=== PATIENT | female | born 1945 | race Caucasian/White ===

== ENCOUNTER 2019-04-11 13:24 | Outpatient (CLI) | payer MEDICARE, OTHER ==
--- NOTE | 2019-04-13 04:55 | OP ---
RADIOLOGY PROCEDURE DATE OF PROCEDURE: 04/11/2019 PROCEDURE: Arterial Doppler. INTERPRETATION: Bilateral lower extremity arterial Doppler examination was performed. There are triphasic waveforms bilaterally with good peak area under the curve. On the right, ankle-brachial index is 1.1; and on the left, ankle- brachial index is 1.2. IMPRESSION: Normal arterial Doppler. Job ID: [id number] MTDD
== END 2019-04-11 13:25 | disposition home or self-care (01) ==
LOC: ULT 13:24
PROVIDERS: ATTEND Family Medicine
DX: G47.62 Sleep related leg cramps (principal)
CPT/HCPCS: 93922

== ENCOUNTER 2019-11-23 08:13 | Outpatient (CLI) | payer MEDICARE, OTHER ==
--- NOTE | 2019-11-23 09:36 | MMO ---
Bilateral MAMMO Bilat Screen [facility]. CLINICAL HISTORY: Patient is 74 years old and is seen for screening. The patient has the following family history of breast cancer: sister, at age 42, malignant (generic); maternal aunt, at age 83, malignant (generic); maternal aunt, at age 42, malignant (generic) and maternal aunt, at age 51, malignant (generic). The patient has no personal history of cancer. VIEWS: The views performed were: bilateral craniocaudal with tomosynthesis and bilateral mediolateral oblique with tomosynthesis. FILMS COMPARED: The present examination has been compared to prior imaging studies performed at [facility] on 07/24/2004 and 05/14/2016. This study has been interpreted with the assistance of computer-aided detection. MAMMOGRAM FINDINGS: There are scattered fibroglandular densities. There are stable benign appearing calcifications seen in both breasts. There are no suspicious masses, suspicious calcifications, or new areas of architectural distortion. IMPRESSION: THERE IS NO MAMMOGRAPHIC EVIDENCE OF MALIGNANCY. A ROUTINE FOLLOW-UP MAMMOGRAM IN 1 YEAR IS RECOMMENDED. THE RESULTS OF THIS EXAM WERE SENT TO THE PATIENT. ACR BI-RADS Category 2 - Benign finding MAMMOGRAPHY NOTE: 1. A negative mammogram report should not delay a biopsy if a dominant of clinically suspicious mass is present. 2. Approximately 10% to 15% of breast cancers are not detected by mammography. 3. Adenosis and dense breasts may obscure an underlying neoplasm. Reported by: MARIAN NOLASCO MD Electonically Signed: [id number]
== END 2019-11-23 08:14 | disposition home or self-care (01) ==
LOC: BICMAMMO 08:13
PROVIDERS: ATTEND Family Medicine
DX: Z12.31 Encounter for screening mammogram for malignant neoplasm of breast (principal); Z80.3 Family history of malignant neoplasm of breast
CPT/HCPCS: 77063; 77067

== ENCOUNTER 2019-11-25 22:52 | Inpatient (IN) | payer MEDICARE, OTHER ==
[2019-11-25 23:06] LABS: #Basophils 0.1 thou/uL (0.0-0.2); #Eosinphils 0.2 thou/uL (0.0-0.7); #Lymphocytes 1.9 thou/uL (1.20-3.40); #Monocytes 1.1 thou/uL (0.11-0.59); #Neutrophils 5.8 thou/uL (1.40-6.50); %Basophils 0.8 % (0.0-1.0); %Eosinophils 1.9 % (0.0-10.0); %Lymphocytes 21.1 % (21.0-51.0); %Monocytes 11.9 % (0.0-10.0); %Neutrophils 64.3 % (42.0-75.0); Mean Corpuscular HGB CONC 33.2 g/dL (32.0-36.0); Mean Corpuscular Volume 90.4 fL (78.0-98.0); Mean Platelet Volume 7.7 fL (7.4-10.4); Platelet Count 180 thou/uL (130-400); Red Blood Cell (RBC) Count 4.66 mill/uL (4.20-5.40); White Blood Cell (WBC) Count 9.1 thou/uL (4.8-10.8)
--- NOTE | 2019-11-25 23:13 | RAD ---
Portable frontal chest radiograph: 11/25/2019 COMPARISON: 03/03/2010 HISTORY: Shortness of breath FINDINGS: There are increased linear interstitial densities noted bilaterally with pulmonary hyperinf lation, evidence of COPD in the proper clinical setting. No pneumothorax or pleural fluid. No focal consolidation or alveolar edema. IMPRESSION: No focal consolidation or alveolar edema.
[2019-11-25 23:33] LABS: ALT (SGPT) 20 U/L (8-55); AST (SGOT) 30 U/L (5-34); Albumin 4.3 g/dL (3.4-4.8); Alkaline Phosphatase 70 U/L (40-110); Anion Gap 14 mmol/L (10-20); BUN (Urea Nitrogen) 9 mg/dL (9.8-20.1); Bilirubin, Total 0.3 mg/dL (0.2-1.2); Calc. Creatinine Clearance 0 mL/min (70-130); Calcium 9.3 mg/dL (7.8-10.44); Carbon Dioxide 28 mmol/L (23-31); Chloride 101 mmol/L (98-107); Estimated GFR-MDRD 85; Globulin 3.4 g/dL (2.4-3.5); Glucose 106 mg/dL (83-110); Potassium 3.2 mmol/L (3.5-5.1); Protein, Total 7.7 g/dL (6.0-8.3); Sodium 140 mmol/L (136-145)
[2019-11-26] MEDS ORDERED: Albuterol Sulfate 2.5 mg/3 ml Neb ONE ×2 (00:14→00:52)
[2019-11-26] MEDS ORDERED: methylPREDNISolone Sod Succ/PF 125 MG/2 ML VIAL ONE (00:53)
[2019-11-26] MEDS ORDERED: Famotidine/PF 20 mg/2ml Vial ONE (01:30)
[2019-11-26] MEDS ORDERED: diphenhydrAMINE 50 MG/ML VIAL ONE (01:30)
[2019-11-26] MEDS ORDERED: Bisacodyl 10 MG SUPP PR PRN (01:59)
[2019-11-26] MEDS ORDERED: Guaifenesin DM 100-10/5 ML UDCUP PO PRN (01:59)
[2019-11-26] MEDS ORDERED: Senokot S 8.6-50 MG TAB PO PRN (01:59)
[2019-11-26] MEDS ORDERED: Acetaminophen 325 MG TAB PO PRN (01:59)
[2019-11-26] MEDS ORDERED: Ondansetron PF 4 MG/2 ML Vial IVP PRN (01:59)
[2019-11-26] MEDS ORDERED: Sodium Chloride 0.9% 1,000 ML IV SCH (02:00)
--- NOTE | 2019-11-26 02:31 | HP ---
REASON FOR ADMISSION: Acute COPD exacerbation, possible viral illness. HISTORY OF PRESENTING ILLNESS: The patient gives history of having cough with expectoration of clear sputum from last 3 days. From yesterday evening, the patient started to develop severe shortness of breath. She could not breathe and finally called EMS and was transported here. No fever at home. She does not take yearly flu shot because she has had symptoms of flu come on after she has had a flu shot in the past. She has taken a pneumococcal shot. No complaints of chest pain, palpitations, or PND. The patient says she does not use any regular inhalers or nebulizers. No prior diagnosis of COPD or asthma. PAST MEDICAL AND SURGICAL HISTORY: Hypertension, anxiety disorder, right forearm both-bone fracture when she was 13 years old and a wrist fracture repaired 4 years back, tubal ligation. CURRENT MEDICATIONS: 1. Norvasc 10 mg daily. 2. Hydrochlorothiazide 25 mg daily. 3. Sertraline 50 mg daily. ALLERGIES: IODINE. PERSONAL HISTORY: Quit smoking 10 years back, prior to which has smoked 1 pack a day for nearly 20 years. Does not abuse alcohol or drugs. Lives with her . Ambulates by herself. FAMILY HISTORY: Mother of pancreatic cancer at the age of 69. Father was killed by a drunk wheelchair driver at the age of 71 years. CODE STATUS: Full. Power of title attorney is her . REVIEW OF SYSTEMS: CONSTITUTIONAL: Negative for weight loss or gain, ability to conduct usual activities. SKIN: Negative for rash, itching. EYES: Negative for double vision, pain. ENT/MOUTH: Negative for nose bleeding, neck stiffness, pain, tenderness. CARDIOVASCULAR: Negative for palpitations, dyspnea on exertion, orthopnea. RESPIRATORY: Negative for shortness of breath, wheezing, cough, hemoptysis, fever or night sweats. GASTROINTESTINAL: Negative for poor appetite, abdominal pain, heartburn, nausea , vomiting, constipation, or diarrhea. GENITOURINARY: Negative for urgency, frequency, dysuria, nocturia. MUSCULOSKELETAL: Negative for pain, swelling. NEUROLOGIC/PSYCHIATRIC: Negative for anxiety, depression. ALLERGY/IMMUNOLOGIC: Negative for skin rash, bleeding tendency. PHYSICAL EXAMINATION: GENERAL: The patient is a 74-year-old female, who is currently in mild respiratory distress. VITAL SIGNS: Blood pressure 172/90, pulse 86 per minute, respiratory rate 22 per minute, temperature 98.5 degrees Fahrenheit, saturating 79% on room air and 94% on 2 L nasal cannula. NECK: Supple. No elevated JVD. HEENT: Eyes; extraocular muscles intact. Pupils reacting to light. Oral cavity, mucous membranes are dry. No exudates or congestion. CARDIOVASCULAR: S1 and S2 heard. Regular rhythm. RESPIRATORY: Air entry 1+ bilateral. Scattered wheezes plus bilateral, rhonchi plus bilateral. ABDOMEN: Soft, bowel sounds heard. No tenderness, rigidity, or guarding. EXTREMITIES: No peripheral edema or calf tenderness. VASCULAR SYSTEM: Peripheral pulses 1+ bilateral. No ischemic ulcerations or gangrene. CENTRAL NERVOUS SYSTEM: No gross focal deficits noted. The patient is alert, awake, oriented well. PSYCHIATRIC: The patient's mood is euthymic. No hallucinations or delusions. LABORATORY DATA: Chest x-ray done shows no acute infiltrate. There are changes of COPD seen. Potassium 3.2, bicarb is 28, BUN 9, creatinine 0.6. Liver enzymes within normal limits. Troponin x1 negative. BNP 14. Albumin is 4.3. H and H 14 and 42, platelet count 180, MCV is 90 with 64% neutrophils. EKG done shows normal sinus rhythm at 88 beats per minute. There is poor R-wave progression seen. CLINICAL IMPRESSION AND PLAN: The patient will be under observation on medical floor for acute chronic obstructive pulmonary disease exacerbation with acute respiratory failure with hypoxia. She is currently saturating well on 2 L nasal cannula. The patient will be placed on 40 mg Solu-Medrol IV q.6 hourly, Levaquin IV 500 mg daily, Mucinex and Tessalon Perles. We will also continue her home dose of Norvasc, sertraline. She will be on Protonix 40 mg daily for now. CT angio chest has been ordered and we will follow up on that. Viral PCR will be obtained as well. The patient does not take her flu shots. The patient likely might have viral illness that has triggered her current COPD flare up. If the patient do not recover in 24 hours, we will switch her to inpatient status based on clinical progress. Job ID: [id number] [facility]
[2019-11-26 02:42] LABS: #Eosinphils 0.1 thou/uL (0.0-0.7); #Lymphocytes 1.4 thou/uL (1.20-3.40); #Monocytes 0.3 thou/uL (0.11-0.59); %Eosinophils 0.7 % (0.0-10.0); %Lymphocytes 18.1 % (21.0-51.0); %Monocytes 4.2 % (0.0-10.0); Hemoglobin 12.3 g/dL (12.0-16.0); Mean Corpuscular HGB CONC 33.7 g/dL (32.0-36.0); Mean Corpuscular Hemoglobin 30.4 pg (27.0-31.0); Mean Corpuscular Volume 90.1 fL (78.0-98.0); Mean Platelet Volume 7.9 fL (7.4-10.4); Platelet Count 157 thou/uL (130-400); RBC Distribution Width 11.8 % (11.5-14.5); Red Blood Cell (RBC) Count 4.03 mill/uL (4.20-5.40); White Blood Cell (WBC) Count 7.8 thou/uL (4.8-10.8)
[2019-11-26 03:06] LABS: Anion Gap 13 mmol/L (10-20); BUN (Urea Nitrogen) 10 mg/dL (9.8-20.1); Calc. Creatinine Clearance 0 mL/min (70-130); Calcium 8.6 mg/dL (7.8-10.44); Carbon Dioxide 26 mmol/L (23-31); Chloride 103 mmol/L (98-107); Estimated GFR-MDRD Greater than 90; Glucose 119 mg/dL (83-110); Sodium 139 mmol/L (136-145)
[2019-11-26 03:09] LABS: Potassium 2.6 mmol/L (3.5-5.1)
[2019-11-26 03:46] VITALS: BMI 29.0
[2019-11-26] MEDS ORDERED: Potassium Chloride 20 MEQ TAB PO SCH ×2 (04:00→06:00)
[2019-11-26] MEDS: methylPREDNISolone Sod Succ 40 MG VIAL IVP SCH ×2 (05:05→12:43)
--- NOTE | 2019-11-26 07:59 | CT ---
PRELIMINARY REPORT/[facility]/EMERGENCY AFTER HOURS PROCEDURE: EXAM: CTA Chest with Intravenous Contrast CLINICAL HISTORY: FVida presents to the ED with c/o SOB x 3 days, that became worse tonight. Pt also re ports decreased appetite, productive cough and clear rhinorrhea. TECHNIQUE: Axial CTA images of the chest with intravenous contrast. MIP reconstructed images were cre ated and reviewed. CONTRAST: With; 85 mL ISOVUE 370 intravenous COMPARISON: None provided. FINDINGS: PULMONARY ARTERIES: There is no intraluminal filling defect suspicious for PE. AORTA: No thoracic aortic aneurysm or dissection. LUNGS: Bilateral diffuse centrilobular emphysematous changes in the lungs. No focal consolidation. Co arse calcification within the left upper lobe consistent with evidence of prior granulomatous or fady al disease. Trace atelectasis at the lung bases. PLEURAL SPACES: No pleural effusion. No pneumothorax. HEART AND MEDIASTINUM: Coronary atherosclerosis. The heart is normal size. No pericardial effusion. LYMPH NODES: No lymphadenopathy. BONES: Multilevel degenerative changes of the spine. No acute fractures or worrisome osseous lesions. CHEST WALL AND UPPER ABDOMEN: Simple cyst of the upper pole of the left kidney. Gallbladder phrygian cap with enhancing intraluminal mural nodule measuring 8 mm. Diverticulosis. IMPRESSION: 1. No evidence of pulmonary embolism or aortic dissection. 2. Coronary atherosclerosis. 3. Diffuse emphysematous changes. No focal consolidation. 4. Gallbladder enhancing mural nodule measuring 8 mm. This may represent a polyp or mass. Follow-u p with ultrasound is suggested. ELECTRONICALLY SIGNED BY: Bruce Florenitno M.D. Nov 26, 2019 2:40:53 AM [employer] OPERATOR FINAL REPORT EMERGENT AFTER HOURS CTA OF THE CHEST WITH CONTRAST: FINDINGS/IMPRESSION: I agree with the findings and impression given in the preliminary report per [facility] physici an. No evidence of pulmonary thromboembolism.
[2019-11-26] MEDS: guaiFENesin ER 600 MG TAB PO SCH ×2 (08:30→21:09)
[2019-11-26] MEDS: Benzonatate 100 MG CAP PO SCH ×3 (08:30→21:09)
[2019-11-26] MEDS: Potassium Chloride 20 MEQ TAB PO SCH ×3 (08:30→21:10)
[2019-11-26] MEDS: Amlodipine 10 MG TAB PO SCH (08:31)
[2019-11-26] MEDS: Enoxaparin Sodium 40 MG/0.4 ML SYRINGE SC SCH (08:34)
[2019-11-26] MEDS: Famotidine 20 MG TAB PO SCH ×2 (09:36→21:09)
[2019-11-26] MEDS ORDERED: Iopamidol-370 76% 500 ML 1 ML ONE (12:56)
--- NOTE | 2019-11-26 17:14 | PDOC.HOSPP ---
- Subjective Encounter Date: 11/26/19 Encounter Time: 17:12 Subjective: Ms. Varela says she feel much better. She does not believe she has any congestion anymore. She is still requiring supplemental oxygen however. - Objective Vital Signs & Weight: Vital Signs (12 hours) Temp Pulse Resp BP BP Pulse Ox 11/26/19 16:24 97.9 F 76 20 169/90 H 91 L 11/26/19 12:49 77 16 94 L 11/26/19 12:46 16 94 L 11/26/19 12:45 85 L 11/26/19 11:10 97.7 F 77 20 134/75 91 L 11/26/19 08:31 77 149/74 H 11/26/19 07:59 97.7 F 77 20 149/74 H 100 11/26/19 07:56 75 14 100 Weight Weight 174 lb 9.698 oz I&O: 11/25/19 11/26/19 11/27/19 06:59 06:59 06:59 Intake Total 110 Balance 110 Result Diagrams: 11/26/19 02:28 11/26/19 02:28 Hospitalist ROS - Medication Medications: Active Medications Generic Name Dose Route Start Last Admin Trade Name Freq PRN Reason Stop Dose Admin Albuterol/Ipratropium 3 ml 11/26/19 07:00 11/26/19 12:49 Duoneb NEB 3 ml [id number] PARK Administration Amlodipine Besylate 10 mg 11/26/19 09:00 11/26/19 08:31 Norvasc PO 10 mg DAILY PARK Administration Benzonatate 100 mg 11/26/19 09:00 11/26/19 15:41 Tessalon PO 100 mg TID PARK Administration Enoxaparin Sodium 40 mg 11/26/19 09:00 11/26/19 08:34 Lovenox SC Not Given 0900 PARK Famotidine 20 mg 11/26/19 09:00 11/26/19 09:36 Pepcid PO Not Given BID PARK Guaifenesin 600 mg 11/26/19 09:00 11/26/19 08:30 Mucinex PO 600 mg Q12HR PARK Administration Levofloxacin 500 mg/ Device 100 mls @ 100 mls/hr 11/26/19 03:00 11/26/19 03: 23 IVPB 100 mls Q24HR PARK Administration Sodium Chloride 1,000 mls @ 50 mls/hr 11/26/19 02:00 11/26/19 03:23 Normal Saline 0.9% IV 11/26/19 21:59 1,000 mls .Q20H PARK Administration Methylprednisolone Sodium Succinate 40 mg 11/26/19 06:00 11/26/19 12:43 Solu-Medrol IVP 40 mg Q6HR PARK Administration Pantoprazole Sodium 40 mg 11/26/19 09:00 11/26/19 08:30 Protonix PO 40 mg DAILY PARK Administration Potassium Chloride 40 meq 11/26/19 10:00 11/26/19 15:40 K-Dur PO 11/27/19 16:01 40 meq 0400,1000,1600,2200 PARK Administration Sertraline HCl 50 mg 11/26/19 09:00 11/26/19 08:31 Zoloft PO 50 mg DAILY PARK Administration Sodium Chloride 10 ml 11/26/19 09:00 11/26/19 09:36 Flush - Normal Saline IVF Not Given Q12HR PARK - Exam Eye: PERRL Heart: RRR, no murmur, no gallops, no rubs, normal peripheral pulses Respiratory: CTAB (with the exception of a faint end expiratory wheeze), no rales, no ronchi, normal chest expansion Gastrointestinal: soft, non-tender, non-distended, normal bowel sounds, no palpable masses, no hepatomegaly Extremities: no cyanosis Hosp A/P (1) Acute respiratory failure with hypoxemia Code(s): J96.01 - ACUTE RESPIRATORY FAILURE WITH HYPOXIA Status: Acute (2) Hypertension Code(s): I10 - ESSENTIAL (PRIMARY) HYPERTENSION Status: Acute (3) Hypokalemia Code(s): E87.6 - HYPOKALEMIA Status: Acute - Plan * Acute respiratory failure with hypoxemia- I suspect she has undiagnosed COPD- She had changes consistent with Emphysema on CT scan, and she is a former smoker , of about 20 pack years. Will continue Levaquin, and Duonebs, and steroids. Will reduce the dose of Solumedrol * Wean oxygen as tolerated * I recommend outpatient PFT's- discussed with patient * Also discussed the gallbladder findings, and the need for outpatient US * HTN- Blood pressure is a bit elevated- continue home medications, and PRN medication as tolerated * Hypokalemia- replace
[2019-11-26] MEDS ORDERED: Bacteriostatic Water 30 ML VIAL FS PRN (17:29)
[2019-11-27] MEDS: Potassium Chloride 20 MEQ TAB PO SCH ×3 (04:12→15:10)
[2019-11-27 06:26] LABS: Anion Gap 12 mmol/L (10-20); BUN (Urea Nitrogen) 16 mg/dL (9.8-20.1); Calc. Creatinine Clearance 96 mL/min (70-130); Calcium 9.3 mg/dL (7.8-10.44); Carbon Dioxide 25 mmol/L (23-31); Chloride 112 mmol/L (98-107); Estimated GFR-MDRD 89; Glucose 107 mg/dL (83-110); Potassium 4.6 mmol/L (3.5-5.1); Sodium 144 mmol/L (136-145)
[2019-11-27] MEDS: guaiFENesin ER 600 MG TAB PO SCH ×2 (08:47→20:32)
[2019-11-27] MEDS: Amlodipine 10 MG TAB PO SCH (08:47)
[2019-11-27] MEDS: Benzonatate 100 MG CAP PO SCH ×3 (08:47→20:32)
[2019-11-27] MEDS: Famotidine 20 MG TAB PO SCH (08:47)
[2019-11-27] MEDS: methylPREDNISolone Sod Succ 40 MG VIAL IVP SCH (08:49)
[2019-11-27] MEDS: Enoxaparin Sodium 40 MG/0.4 ML SYRINGE SC SCH (08:50)
--- NOTE | 2019-11-27 14:36 | PDOC.HOSPP ---
- Subjective Encounter Date: 11/27/19 Encounter Time: 14:35 Subjective: Ms. Varela was seen today in follow-up of acute respiratory failure. She is feeling better. - Objective Vital Signs & Weight: Vital Signs (12 hours) Temp Pulse Resp BP Pulse Ox 11/27/19 12:42 85 16 94 L 11/27/19 11:00 97.9 F 82 18 155/84 H 92 L 11/27/19 08:47 87 11/27/19 07:30 97.9 F 87 18 145/79 H 92 L 11/27/19 07:02 95 11/27/19 07:00 75 16 95 11/27/19 05:17 97.4 F L 83 18 164/79 H 93 L Weight Weight 174 lb 9.698 oz I&O: 11/26/19 11/27/19 11/28/19 06:59 06:59 06:59 Intake Total 110 200 700 Balance 110 200 700 Result Diagrams: 11/26/19 02:28 11/27/19 05:37 Hospitalist ROS - Medication Medications: Active Medications Generic Name Dose Route Start Last Admin Trade Name Freq PRN Reason Stop Dose Admin Albuterol/Ipratropium 3 ml 11/26/19 07:00 11/27/19 12:42 Duoneb NEB 3 ml [id number] PARK Administration Amlodipine Besylate 10 mg 11/26/19 09:00 11/27/19 08:47 Norvasc PO 10 mg DAILY PARK Administration Benzonatate 100 mg 11/26/19 09:00 11/27/19 08:47 Tessalon PO 100 mg TID PARK Administration Enoxaparin Sodium 40 mg 11/26/19 09:00 11/27/19 08:50 Lovenox SC Not Given 0900 PARK Guaifenesin 600 mg 11/26/19 09:00 11/27/19 08:47 Mucinex PO 600 mg Q12HR PARK Administration Methylprednisolone Sodium Succinate 40 mg 11/27/19 09:00 11/27/19 08:49 Solu-Medrol IVP 40 mg DAILY PARK Administration Pantoprazole Sodium 40 mg 11/26/19 09:00 11/27/19 08:47 Protonix PO 40 mg DAILY PARK Administration Potassium Chloride 40 meq 11/26/19 10:00 11/27/19 09:23 K-Dur PO 11/27/19 16:01 40 meq 0400,1000,1600,2200 PARK Administration Sertraline HCl 50 mg 11/26/19 09:00 11/27/19 08:48 Zoloft PO 50 mg DAILY PARK Administration Sodium Chloride 10 ml 11/26/19 09:00 11/27/19 08:49 Flush - Normal Saline IVF 10 ml Q12HR PARK Administration - Exam Eye: PERRL Respiratory: CTAB, no wheezes, no rales, no ronchi, normal chest expansion, no tachypnea, normal percussion Gastrointestinal: soft, non-tender, non-distended, normal bowel sounds, no palpable masses, no hepatomegaly Extremities: no cyanosis, no edema Hosp A/P (1) Acute respiratory failure with hypoxemia Code(s): J96.01 - ACUTE RESPIRATORY FAILURE WITH HYPOXIA Status: Acute (2) Hypertension Code(s): I10 - ESSENTIAL (PRIMARY) HYPERTENSION Status: Acute (3) Hypokalemia Code(s): E87.6 - HYPOKALEMIA Status: Acute - Plan * Acute respiratory failure with hypoxemia- due to Probable Emphysema- improving , butjacob is still hypoxic. She feels like her baseline * Will order home oxygen * HTN- Blood pressure is a bit elevated- continue home medications, and PRN medication as tolerated * Home once oxtgen arranged
[2019-11-27] MEDS ORDERED: Rosuvastatin 20 MG TAB PO SCH (21:00)
[2019-11-28] MEDS: Benzonatate 100 MG CAP PO SCH ×2 (07:52→14:49)
[2019-11-28] MEDS: guaiFENesin ER 600 MG TAB PO SCH (07:52)
[2019-11-28] MEDS: methylPREDNISolone Sod Succ 40 MG VIAL IVP SCH (07:53)
[2019-11-28] MEDS: Amlodipine 10 MG TAB PO SCH (07:53)
[2019-11-28] MEDS: Enoxaparin Sodium 40 MG/0.4 ML SYRINGE SC SCH (07:53)
--- NOTE | 2019-11-28 16:01 | PDOC.HOSPP ---
- Subjective Encounter Date: 11/28/19 Encounter Time: 16:00 Subjective: Ms. Varela was seen today in follow-up of respiratory failure. She says she has to go home today. She tells me she has been ambulating without the oxygen. - Objective Vital Signs & Weight: Vital Signs (12 hours) Temp Pulse Resp BP BP Pulse Ox 11/28/19 13:09 80 16 11/28/19 11:47 97.7 F 91 22 H 170/82 H 91 L 11/28/19 08:00 93 L 11/28/19 07:53 86 138/78 11/28/19 07:19 97.8 F 88 20 138/78 93 L 11/28/19 06:55 76 16 94 L Weight Weight 174 lb 9.698 oz I&O: 11/27/19 11/28/19 11/29/19 06:59 06:59 06:59 Intake Total 200 940 Balance 200 940 Result Diagrams: 11/26/19 02:28 11/27/19 05:37 Hospitalist ROS - Medication Medications: Active Medications Generic Name Dose Route Start Last Admin Trade Name Freq PRN Reason Stop Dose Admin Albuterol/Ipratropium 3 ml 11/26/19 07:00 11/28/19 13:09 Duoneb NEB 3 ml [id number] PARK Administration Amlodipine Besylate 10 mg 11/26/19 09:00 11/28/19 07:53 Norvasc PO 10 mg DAILY PARK Administration Benzonatate 100 mg 11/26/19 09:00 11/28/19 14:49 Tessalon PO 100 mg TID PARK Administration Enoxaparin Sodium 40 mg 11/26/19 09:00 11/28/19 07:53 Lovenox SC Not Given 0900 PARK Guaifenesin 600 mg 11/26/19 09:00 11/28/19 07:52 Mucinex PO 600 mg Q12HR PARK Administration Levofloxacin 500 mg 11/28/19 06:00 11/28/19 05:38 Levaquin PO 500 mg 0600 PARK Administration Methylprednisolone Sodium Succinate 40 mg 11/27/19 09:00 11/28/19 07:53 Solu-Medrol IVP 40 mg DAILY PARK Administration Pantoprazole Sodium 40 mg 11/26/19 09:00 11/28/19 07:53 Protonix PO 40 mg DAILY PARK Administration Rosuvastatin Calcium 20 mg 11/27/19 21:00 11/27/19 20:32 Crestor PO 20 mg HS PARK Administration Sertraline HCl 50 mg 11/26/19 09:00 11/28/19 07:52 Zoloft PO 50 mg DAILY PARK Administration Sodium Chloride 10 ml 11/26/19 09:00 11/28/19 07:53 Flush - Normal Saline IVF 10 ml Q12HR PARK Administration - Exam Eye: PERRL Heart: RRR, no murmur, no gallops, no rubs, normal peripheral pulses Respiratory: CTAB, no wheezes, no rales, no ronchi, normal chest expansion, no tachypnea, normal percussion Gastrointestinal: soft, non-tender, non-distended, normal bowel sounds, no palpable masses, no hepatomegaly Extremities: no cyanosis, no clubbing, no edema Hosp A/P (1) Acute respiratory failure with hypoxemia Code(s): J96.01 - ACUTE RESPIRATORY FAILURE WITH HYPOXIA Status: Acute (2) Hypertension Code(s): I10 - ESSENTIAL (PRIMARY) HYPERTENSION Status: Acute (3) Hypokalemia Code(s): E87.6 - HYPOKALEMIA Status: Acute - Plan * Acute respiratory failure- resolved. She is at her baseline * Awaiting home oxygen, but if it is not delivered today then she will have this done as an outpatient * Home today
[2019-11-28 17:45] VITALS: BP 169/79; TEMP 97.6
--- NOTE | 2019-11-29 03:15 | DIS ---
DATE OF ADMISSION: 11/27/2019 DATE OF DISCHARGE: 11/28/2019 PRIMARY CARE PHYSICIAN: Candida Blair MD. DISCHARGE DISPOSITION: Home. DISCHARGE DIAGNOSES: 1. Acute on chronic respiratory failure with hypoxemia. 2. Probable emphysema. 3. Hypertension. DISCHARGE MEDICATIONS: Include: 1. Symbicort 160/4.5, one puff twice daily. 2. Levaquin 500 mg p.o. daily for 4 days. 3. Zoloft 50 mg daily. 4. Crestor 20 mg at bedtime. 5. Hydrochlorothiazide 25 mg daily. 6. Amlodipine 10 mg a day. PROCEDURES DONE DURING THE ADMISSION: The patient had a CT angiogram of the chest, which showed no evidence of pulmonary embolism or aortic dissection. There was diffuse emphysematous changes, but no focal consolidation and a nodule in the gallbladder measuring 8 mm. CODE STATUS: Full code. ALLERGIES: TO IODINATED CONTRAST. HOSPITAL COURSE: Ms. Varela is a pleasant 74-year-old female, who was admitted to the hospital after having cough and shortness of breath, dyspnea on exertion. She had significant wheezing on exam as well and was found to be hypoxic. Her oxygen saturations would drop into the 70s without oxygen. She was admitted and started on antibiotics, as well as DuoNeb and supplemental oxygen and did well over the course of the next couple of days. We were unable to completely wean her oxygen and when she would remove the oxygen, again she would desaturate down into the 80s and 70s. For this reason, home oxygen was arranged. I suspect she has emphysema based on the changes on the CT scan and this has likely been an ongoing problem that was unrecognized. She also was told about the finding on the gallbladder and the need to have an abdominal ultrasound in the outpatient setting, and the patient was also urged to follow up with her primary care physician in 1 week. Job ID: [id number]
== END 2019-11-28 17:50 | disposition home or self-care (01) | DRG 189 ==
LOC: ERS 22:52 → T4-B 11-26 02:59 → OBSVTOIN 11-27 16:57
PROVIDERS: ADMIT Internal Medicine; ATTEND Internal Medicine
DX: J96.21 Acute and chronic respiratory failure with hypoxia (principal); J43.9 Emphysema, unspecified; I10 Essential (primary) hypertension; F41.9 Anxiety disorder, unspecified; E87.6 Hypokalemia; Z98.51 Tubal ligation status; Z87.81 Personal history of (healed) traumatic fracture; Z87.891 Personal history of nicotine dependence; Z91.041 Radiographic dye allergy status
CPT/HCPCS: 36415; 36416; 71045; 71275; 80048; 80053; 83880; 84484; 85025; 87040; 87070; 87205; 87633; 93005; 94640; 96374; 96375; J1200; J1956; J2920; J2930; J7611; J7620; Q9967; S0028

== ENCOUNTER 2019-12-12 06:52 | Outpatient (CLI) | payer MEDICARE, OTHER ==
--- NOTE | 2019-12-12 07:45 | ULT ---
US Gallbladder RUQ: 12/12/2019 12:00 AM CLINICAL HISTORY: Gallbladder mass versus polyp seen on CT. STUDY: Limited right upper quadrant ultrasound of abdomen. COMPARISON: CT chest 11/26/2019 FINDINGS: Liver: Size: Normal. Echogenicity: Normal. Contour: Smooth. Mass: None. Bile ducts: No intrahepatic or extrahepatic biliary dilatation. Common bile duct measures 6 mm. Gallbladder: There is an echogenic shadowing structure within the gallbladder which likely represents a shadowing gallstone. No flow is seen within this structure to suggest a gallbladder mass. Pancreas: Head, body, and tail appear normal. Right kidney: No pelvicalyceal dilatation. Right kidney measuring 10.5 cm in length. IMPRESSION: Cholelithiasis
== END 2019-12-12 06:53 | disposition home or self-care (01) ==
LOC: BICULT 06:52
PROVIDERS: ATTEND Physician Assistant
DX: R93.2 Abnormal findings on diagnostic imaging of liver and biliary tract (principal); K80.20 Calculus of gallbladder without cholecystitis without obstruction
CPT/HCPCS: 76705

== ENCOUNTER 2019-12-29 06:58 | Outpatient (CLI) | payer MEDICARE, OTHER ==
[2019-12-29 10:56] LABS: #Basophils 0.1 thou/uL (0.0-0.2); #Eosinphils 0.2 thou/uL (0.0-0.7); #Lymphocytes 1.6 thou/uL (1.20-3.40); #Monocytes 0.5 thou/uL (0.11-0.59); #Neutrophils 4.9 thou/uL (1.40-6.50); %Eosinophils 2.8 % (0.0-10.0); %Monocytes 7.1 % (0.0-10.0); %Neutrophils 67.1 % (42.0-75.0); Hemoglobin 13.3 g/dL (12.0-16.0); Mean Corpuscular HGB CONC 32.2 g/dL (32.0-36.0); Mean Corpuscular Hemoglobin 29.8 pg (27.0-31.0); Mean Corpuscular Volume 92.5 fL (78.0-98.0); Mean Platelet Volume 8.8 fL (7.4-10.4); Platelet Count 221 thou/uL (130-400); RBC Distribution Width 12.5 % (11.5-14.5); Red Blood Cell (RBC) Count 4.46 mill/uL (4.20-5.40); White Blood Cell (WBC) Count 7.2 thou/uL (4.8-10.8)
[2019-12-29 11:21] LABS: ALT (SGPT) 15 U/L (8-55); AST (SGOT) 21 U/L (5-34); Albumin 4.2 g/dL (3.4-4.8); Alkaline Phosphatase 80 U/L (40-110); Anion Gap 15 mmol/L (10-20); BUN (Urea Nitrogen) 19 mg/dL (9.8-20.1); Bilirubin, Total 0.3 mg/dL (0.2-1.2); Calc. Creatinine Clearance 0 mL/min (70-130); Calcium 9.6 mg/dL (7.8-10.44); Carbon Dioxide 26 mmol/L (23-31); Chloride 105 mmol/L (98-107); Estimated GFR-MDRD 83; Globulin 2.7 g/dL (2.4-3.5); Glucose 80 mg/dL (83-110); Potassium 3.6 mmol/L (3.5-5.1); Protein, Total 6.9 g/dL (6.0-8.3); Sodium 142 mmol/L (136-145)
--- NOTE | 2020-01-01 00:14 | EKG ---
Test Reason : Blood Pressure : / mmHG Vent. Rate : 061 BPM Atrial Rate : 061 BPM P-R Int : 164 ms QRS Dur : 094 ms QT Int : 456 ms P-R-T Axes : 076 068 059 degrees QTc Int : 459 ms Normal sinus rhythm Normal ECG When compared with ECG of 25-NOV-2019 22:59, Nonspecific T wave abnormality no longer evident in Lateral leads Confirmed by Evin LIVE ([id number]) on 01/01/2020 12:13:51 AM Referred By: CORIE Confirmed By:Evin LIVE
== END 2019-12-29 06:59 | disposition home or self-care (01) ==
LOC: LABBT 06:58
PROVIDERS: ATTEND Specialist
DX: Z01.818 Encounter for other preprocedural examination (principal); K80.00 Calculus of gallbladder with acute cholecystitis without obstruction
CPT/HCPCS: 80053; 85025; 93005; 93010

== ENCOUNTER 2020-01-01 10:21 | Day surgery (SDC) | payer MEDICARE, OTHER ==
[2019-12-29 09:37] VITALS: BMI 29.2
[2020-01-01] MEDS ORDERED: Lidocaine 1% PF 5 ML VIAL ONE (11:31)
[2020-01-01] MEDS ORDERED: Ondansetron PF 4 MG/2 ML Vial ONE (11:31)
[2020-01-01] MEDS ORDERED: PROPOFOL 200 MG/20 ML VIAL ONE (11:31)
[2020-01-01] MEDS ORDERED: Rocuronium Bromide 10 MG/ML (10ML VIAL) ONE (11:31)
[2020-01-01] MEDS ORDERED: Dexamethasone 20 MG/5 ML VIAL ONE (11:31)
[2020-01-01] MEDS ORDERED: Glycopyrrolate 0.2 MG/ML 5 ML SYRINGE ONE (11:31)
[2020-01-01] MEDS ORDERED: Acetaminophen 500 MG TAB ONE (11:51)
[2020-01-01] MEDS ORDERED: Ketorolac Tromethamine 30 MG/ML VIAL ONE (11:51)
[2020-01-01] MEDS ORDERED: Fentanyl 100 MCG/2 ML VIAL ONE ×4 (12:02→13:37)
[2020-01-01] MEDS ORDERED: Bupivacaine 0.25% HCL 30 ML VIAL ONE (12:06)
[2020-01-01] MEDS ORDERED: Lidocaine 1% w/Epinephrine 1:100K 20 ML VIAL ONE (12:06)
[2020-01-01] MEDS ORDERED: traMADol HCl 50 MG TAB ONE (14:49)
--- NOTE | 2020-01-02 12:34 | OP ---
DATE OF PROCEDURE: 01/01/2020 PREOPERATIVE DIAGNOSIS: Symptomatic cholelithiasis. POSTOPERATIVE DIAGNOSIS: Symptomatic cholelithiasis. PROCEDURE PERFORMED: Laparoscopic cholecystectomy. ANESTHESIA: General endotracheal. FIELD AUTO APPRAISER: Sadie Elkins, medical student. INDICATIONS: The patient is a 74-year-old white female. She was recently diagnosed with cholelithiasis and she has obvious symptoms referable to gallbladder on physical examination. I therefore recommend laparoscopic cholecystectomy. PROCEDURE IN DETAIL: Informed consent was obtained. The patient was taken to the operating room where general endotracheal anesthesia was obtained with the patient in the supine position. The abdomen was prepped with Betadine and draped in the usual sterile fashion. 0.25% Marcaine with epinephrine was infiltrated below the umbilicus and a 10 mm infraumbilical incision was created. A Veress needle was passed through this incision into the peritoneal cavity. A pneumoperitoneum was established using carbon dioxide up to a pressure of 15 mmHg. Local anesthetic was infiltrated and 3 additional 5 mm right upper quadrant incisions were created. Through the mid incision, a 5 mm port was passed into the peritoneal cavity. The camera was passed through this port and under direct vision, an 11 port was passed through the infraumbilical incision. The camera was replaced through this port, and under direct vision, 2 additional 5 mm ports were passed through the incisions already created. The gallbladder was grasped and retracted in a cephalad direction. Minimal adhesions were bluntly stripped away from the apex of the gallbladder, and the apex was retracted laterally and inferiorly. Careful dissection was carried out to the apex of the gallbladder to identify the cystic duct and cystic artery. These were each carefully dissected circumferentially. The duct was of normal caliber. Both the duct and the artery were divided between clips, leaving 2 on the side to remain within the abdomen. The gallbladder was then dissected out of the gallbladder fossa using electrocautery and removed through the infraumbilical port site. The fascia was closed with 0 Vicryl suture and a GraNee needle. The right upper quadrant was inspected and irrigated. All irrigant was aspirated. All ports and instruments were removed under direct vision. Pneumoperitoneum was carefully evacuated. Additional local anesthetic was infiltrated into each port site. The skin edges were approximated with 4-0 Monocryl subcuticular sutures, and Dermabond was placed externally. There were no complications. The patient tolerated the procedure well and was taken to the recovery room in stable condition. FINDINGS: The patient had several stones within her gallbladder. There was no acute pericholecystic inflammation or adhesions. The duct and artery were small and noninflamed. There were no complications and essentially, no blood loss. The patient tolerated the procedure well, was taken to the recovery room in stable condition. Job ID: [id number]
== END 2020-01-01 15:10 | disposition home or self-care (01) ==
LOC: SDC 10:21
PROVIDERS: ATTEND Specialist
PROC: 0FT44ZZ Resection of Gallbladder, Percutaneous Endoscopic Approach (ICD-10-PCS; principal; 2020-01-01)
DX: K80.10 Calculus of gallbladder with chronic cholecystitis without obstruction (principal); K21.9 Gastro-esophageal reflux disease without esophagitis; I10 Essential (primary) hypertension; F41.1 Generalized anxiety disorder; Z79.899 Other long term (current) drug therapy; Z91.041 Radiographic dye allergy status
CPT/HCPCS: 88304; J0690; J1100; J1885; J2001; J2405; J2704; J3010; S0020

== ENCOUNTER 2020-12-06 18:34 | Emergency (ER) | payer MEDICARE, OTHER ==
--- NOTE | 2020-12-06 19:30 | RAD ---
LEFT WRIST THREE VIEWS: 12/06/20 HISTORY: Fall. 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 There is a mainly transversely oriented dorsally angulated distal radial fracture and associated ulnar styloid avulsion type injury. IMPRESSION: Colles type fracture POS: OFF
[2020-12-06] MEDS ORDERED: PROPOFOL 20 ML ONE (21:13)
--- NOTE | 2020-12-07 08:07 | RAD ---
LEFT WRIST 2 VIEWS: Date: 12/06/2020 HISTORY: Post reduction. COMPARISON: Exam done earlier today. FINDINGS: Colles' type fracture has been reduced. The alignment of the distal radius is improved with good over all alignment of fractures. IMPRESSION: Reduction of Colles' type fracture. POS: OFF
== END 2020-12-06 22:33 | disposition home or self-care (01) ==
LOC: ERS 18:34
DX: S52.502A Unspecified fracture of the lower end of left radius, initial encounter for closed fracture (principal); S52.612A Displaced fracture of left ulna styloid process, initial encounter for closed fracture; I10 Essential (primary) hypertension; Z79.899 Other long term (current) drug therapy; W01.0XXA Fall on same level from slipping, tripping and stumbling without subsequent striking against object, initial encounter
CPT/HCPCS: 25605; 94760; 99152; 99153; J2704

== ENCOUNTER 2021-12-31 08:12 | Outpatient (CLI) | payer MEDICARE | END 2021-12-31 08:13 | disposition home or self-care (01) | LOC: BICMAMMO 08:12 | PROVIDERS: ATTEND Family Medicine | DX: Z12.31 Encounter for screening mammogram for malignant neoplasm of breast (principal); I70.221 Atherosclerosis of native arteries of extremities with rest pain, right leg; Z80.3 Family history of malignant neoplasm of breast | CPT/HCPCS: 77063; 77067; 93923; 93970 ==

== ENCOUNTER 2023-01-25 09:21 | Emergency (ER) | payer MEDICARE, OTHER | END 2023-01-25 12:38 | disposition home or self-care (01) | LOC: ERS 09:21 | DX: S86.912A Strain of unspecified muscle(s) and tendon(s) at lower leg level, left leg, initial encounter (principal); I10 Essential (primary) hypertension; W19.XXXA Unspecified fall, initial encounter ==

== ENCOUNTER 2024-03-30 19:51 | Inpatient (IN) | payer MEDICARE, OTHER ==
[~2024-03-30 19:51] MED LIST: Iopamidol-370 76% 500 ML MDV (1 ML CHARGE) ONE
[2024-03-30 20:23] LABS: #Basophils 0.08 10x3/uL (0.0-0.2); %Basophils 0.6 % (0.0-1.0); %Eosinophils 1.6 % (0.0-10.0); %Lymphocytes 16.3 % (21.0-51.0); %Monocytes 10.2 % (0.0-10.0); %Neutrophils 70.9 % (42.0-75.0); Hematocrit 39.6 % (36.0-47.0); Mean Corpuscular HGB CONC 32.8 g/dL (32.0-36.0); Mean Corpuscular Hemoglobin 28.6 pg (27.0-31.0); Platelet Count 326 10x3/uL (130-400); RBC Distribution Width 13.6 % (11.5-14.5); Red Blood Cell (RBC) Count 4.55 mill/uL (4.20-5.40)
[2024-03-30 20:35] LABS: Globulin 4.9 g/dL (2.4-3.5)
[2024-03-30 20:40] LABS: ALT (SGPT) 14 U/L (8-55); AST (SGOT) 31 U/L (5-34); Albumin 3.2 g/dL (3.4-4.8); Alkaline Phosphatase 79 U/L (40-110); Anion Gap 14 mmol/L (10-20); BUN (Urea Nitrogen) 14 mg/dL (9.8-20.1); Bilirubin, Total 0.4 mg/dL (0.2-1.2); Calc. Creatinine Clearance 0 mL/min (70-130); Calcium 10.4 mg/dL (7.8-10.44); Carbon Dioxide 23 mmol/L (23-31); Chloride 106 mmol/L (98-107); Estimated GFR 81; Glucose 117 mg/dL (83-110); Potassium 3.3 mmol/L (3.5-5.1); Protein, Total 8.1 g/dL (5.8-8.1); Sodium 140 mmol/L (136-145)
[2024-03-30 20:44] LABS: Troponin I 0.017 ng/mL (< 0.028)
[2024-03-30] MEDS ORDERED: HYDROcodone/Acetaminophen 7.5/325 mg Tablet PO PRN (22:17)
[2024-03-30] MEDS ORDERED: Ondansetron PF 4 MG/2 ML Vial IVP PRN (22:17)
[2024-03-30] MEDS ORDERED: Dexamethasone 10 MG/ML VIAL ONE (22:32)
[2024-03-30] MEDS ORDERED: Famotidine/PF 20 mg/2ml Vial ONE ×2 (22:32→22:38)
[2024-03-30] MEDS ORDERED: diphenhydrAMINE 50 MG/ML VIAL ONE (22:32)
[2024-03-30] MEDS ORDERED: methylPREDNISolone Sod Succ 40 MG VIAL ONE (22:33)
[2024-03-31 02:46] VITALS: BMI 25.9
[2024-03-31 03:38] LABS: #Basophils Less than 0.03 10x3/uL (0.0-0.2); #Eosinphils Less than 0.03 10x3/uL (0.0-0.7); %Basophils 0.2 % (0.0-1.0); %Eosinophils 0.1 % (0.0-10.0); %Monocytes 0.7 % (0.0-10.0); %Neutrophils 90.5 % (42.0-75.0); Hematocrit 37.8 % (36.0-47.0); Hemoglobin 12.3 g/dL (12.0-16.0); Mean Corpuscular HGB CONC 32.5 g/dL (32.0-36.0); Mean Corpuscular Hemoglobin 28.4 pg (27.0-31.0); Mean Corpuscular Volume 87.3 fL (78.0-98.0); Mean Platelet Volume 10.1 fL (7.4-10.4); Platelet Count 302 10x3/uL (130-400); RBC Distribution Width 13.5 % (11.5-14.5); Red Blood Cell (RBC) Count 4.33 mill/uL (4.20-5.40)
[2024-03-31] MEDS: Dexamethasone 4 mg/ml Vial SLOW IVP SCH (03:41)
[2024-03-31 04:04] LABS: Anion Gap 16 mmol/L (10-20); BUN (Urea Nitrogen) 14 mg/dL (9.8-20.1); Calc. Creatinine Clearance 80 mL/min (70-130); Calcium 10.2 mg/dL (7.8-10.44); Carbon Dioxide 14 mmol/L (23-31); Chloride 111 mmol/L (98-107); Estimated GFR 90; Glucose 139 mg/dL (83-110); Potassium 3.9 mmol/L (3.5-5.1); Sodium 137 mmol/L (136-145)
[2024-03-31] MEDS: Pantoprazole 40 MG VIAL IVP SCH (09:00)
[2024-03-31] MEDS: Famotidine/PF 20 mg/2ml Vial SLOW IVP SCH (09:00)
[2024-03-31] MEDS: Sodium Chloride 0.9% 1,000 ML IV SCH (09:01)
[2024-04-02] MEDS: Amlodipine 10 MG TAB PO SCH (09:29)
[2024-04-02] MEDS: Sertraline 25 MG TAB PO SCH (09:29)
[2024-04-02] MEDS: Rosuvastatin 20 MG TAB PO SCH (09:29)
[2024-04-03 06:04] LABS: INR-International Normal Ratio 1.1; PTT 28.1 sec (22.9-36.1); Prothrombin Time 14.3 sec (12.0-14.7)
[2024-04-03] MEDS ORDERED: Lidocaine 1% PF 5 ML VIAL ONE (10:06)
[2024-04-03] MEDS ORDERED: Sodium Bicarbonate 2.5 MEQ/5 ML SDV ONE (10:06)
[2024-04-03] MEDS ORDERED: fentaNYL 50 mcg/mL 1 mL Vial ONE (10:06)
[2024-04-04] MEDS: Pantoprazole DR 40 MG TAB PO SCH (08:28)
[2024-04-04] MEDS ORDERED: Acetaminophen 325 MG TAB PO PRN (08:44)
[2024-04-06 13:59] VITALS: BMI 25.9
[2024-04-07 01:21] VITALS: TEMP 97.9
[2024-04-07 07:44] VITALS: BP 157/72
== END 2024-04-07 15:25 | disposition home or self-care (01) | DRG 54 ==
LOC: ERS 19:51 → 2SE 22:15 → T4-B 04-03 15:25 → UNDODISIN 04-04 16:05
PROVIDERS: ADMIT Hospitalist; ATTEND Internal Medicine
PROC: 0FB13ZX Excision of Right Lobe Liver, Percutaneous Approach, Diagnostic (ICD-10-PCS; principal; 2024-04-03)
DX: C79.31 Secondary malignant neoplasm of brain (principal); G93.41 Metabolic encephalopathy; C78.7 Secondary malignant neoplasm of liver and intrahepatic bile duct; C79.70 Secondary malignant neoplasm of unspecified adrenal gland; C34.90 Malignant neoplasm of unspecified part of unspecified bronchus or lung; I10 Essential (primary) hypertension; Z91.041 Radiographic dye allergy status; Z98.51 Tubal ligation status; E87.6 Hypokalemia; R91.8 Other nonspecific abnormal finding of lung field; Z87.891 Personal history of nicotine dependence
CPT/HCPCS: 36415; 47000; 70450; 70553; 71045; 71260; 74177; 77012; 77014; 80048; 80053; 83605; 84443; 84484; 85025; 85610; 85730; 88307; 88333; 88334; 88341; 88342; 93005; 96374; 96375; C9113; J1100; J1200; J2920; J3010; J7050; Q9967; S0028

== ENCOUNTER 2024-04-25 11:00 | Outpatient (CLI) | payer MEDICARE, OTHER | END 2024-04-25 11:01 | disposition home or self-care (01) | LOC: PET 11:00 | PROVIDERS: ATTEND Internal Medicine Hematology & Oncology | DX: C34.81 Malignant neoplasm of overlapping sites of right bronchus and lung (principal); R91.8 Other nonspecific abnormal finding of lung field; K76.89 Other specified diseases of liver; E27.9 Disorder of adrenal gland, unspecified; E04.1 Nontoxic single thyroid nodule | CPT/HCPCS: 78815; A9552 ==

== ENCOUNTER 2024-05-12 16:22 | Inpatient (IN) | payer MEDICARE, OTHER ==
[2024-05-12 16:55] LABS: #Basophils Less than 0.03 10x3/uL (0.0-0.2); #Eosinphils Less than 0.03 10x3/uL (0.0-0.7); %Basophils 0.1 % (0.0-1.0); %Lymphocytes 5.6 % (21.0-51.0); %Monocytes 4.4 % (0.0-10.0); Hematocrit 37.6 % (36.0-47.0); Hemoglobin 12.2 g/dL (12.0-16.0); Mean Corpuscular HGB CONC 32.4 g/dL (32.0-36.0); Mean Corpuscular Hemoglobin 27.7 pg (27.0-31.0); Mean Corpuscular Volume 85.5 fL (78.0-98.0); Mean Platelet Volume 10.7 fL (7.4-10.4); Platelet Count 338 10x3/uL (130-400); RBC Distribution Width 15.1 % (11.5-14.5)
[2024-05-12 17:14] LABS: ALT (SGPT) 15 U/L (8-55); AST (SGOT) 51 U/L (5-34); Albumin 2.6 g/dL (3.4-4.8); Alkaline Phosphatase 146 U/L (40-110); Anion Gap 16 mmol/L (10-20); BUN (Urea Nitrogen) 23 mg/dL (9.8-20.1); Bilirubin, Total 0.5 mg/dL (0.2-1.2); Calc. Creatinine Clearance 0 mL/min (70-130); Calcium 11.9 mg/dL (7.8-10.44); Carbon Dioxide 24 mmol/L (23-31); Chloride 108 mmol/L (98-107); Estimated GFR 83; Globulin 4.6 g/dL (2.4-3.5); Glucose 126 mg/dL (83-110); Lipase 27 U/L (8-78); Protein, Total 7.2 g/dL (5.8-8.1); Sodium 145 mmol/L (136-145)
[2024-05-12 17:22] LABS: Troponin I 0.036 ng/mL (< 0.028)
[2024-05-12] MEDS ORDERED: D5 1/2 NS w/20 mEq KCL 1,000 ML ONE (18:03)
[2024-05-12 18:49] LABS: Bacteria/HPF None Seen HPF (None Seen); Bilirubin Negative (Negative); Blood, Urine Trace (Negative); CAUTI Indications for Culture Dysuria,urgency,freq; Clarity Clear (Clear); Glucose, Urine (Dipstick) Normal (Negative); Ketone, Urine Negative (Negative); Leukocyte Negative Leu/uL (Negative); Nitrite Negative (Negative); Protein, Urine (Dipstick) 50 mg/dL (Neg-Trace); RBC/HPF 0-3 HPF (0-3); Specific Gravity, Urine 1.015 (1.002-1.036); Squamous Epithelial 0-3 HPF (0-3); Urobilinogen Normal mg/dL (Less than 2); WBC/HPF 0-3 HPF (0-3)
[2024-05-12 18:59] LABS: Urine Culture Reflex No No
[2024-05-12] MEDS ORDERED: methylPREDNISolone Sod Succ/PF 125 MG/2 ML VIAL ONE (19:16)
[2024-05-12] MEDS ORDERED: diphenhydrAMINE 50 MG/ML VIAL ONE (19:16)
[2024-05-12] MEDS ORDERED: Famotidine/PF 20 mg/2ml Vial ONE (19:16)
[2024-05-12 23:36] LABS: Troponin I 0.033 ng/mL (< 0.028)
[2024-05-13] MEDS ORDERED: Ondansetron PF 4 MG/2 ML Vial IVP PRN (01:15)
[2024-05-13] MEDS ORDERED: Sodium Chloride 0.9% 1,000 ML IV SCH (01:15)
[2024-05-13] MEDS ORDERED: Acetaminophen 325 MG TAB PO PRN ×2 (01:15→03:18)
[2024-05-13] MEDS ORDERED: Ondansetron ODT 4 MG TAB SL PRN (01:15)
[2024-05-13] MEDS: D5 1/2 NS w/20 mEq KCL 1,000 ML IV SCH (02:01)
[2024-05-13 02:51] LABS: Troponin I 0.028 ng/mL (< 0.028)
[2024-05-13] MEDS ORDERED: Acetaminophen/Codeine 30-300mg Tablet PO PRN (03:13)
[2024-05-13] MEDS ORDERED: Acetaminophen 650 MG Suppository PR PRN (03:18)
[2024-05-13 05:38] LABS: Anion Gap 13 mmol/L (10-20); BUN (Urea Nitrogen) 17 mg/dL (9.8-20.1); Calc. Creatinine Clearance 70 mL/min (70-130); Calcium 10.8 mg/dL (7.8-10.44); Carbon Dioxide 19 mmol/L (23-31); Chloride 112 mmol/L (98-107); Estimated GFR 90; Glucose 218 mg/dL (83-110); Sodium 141 mmol/L (136-145)
[2024-05-13 05:49] LABS: #Basophils Less than 0.03 10x3/uL (0.0-0.2); #Eosinphils Less than 0.03 10x3/uL (0.0-0.7); %Basophils 0.1 % (0.0-1.0); %Lymphocytes 5.8 % (21.0-51.0); %Monocytes 2.6 % (0.0-10.0); %Neutrophils 90.5 % (42.0-75.0); Hematocrit 35.2 % (36.0-47.0); Hemoglobin 11.2 g/dL (12.0-16.0); Mean Corpuscular HGB CONC 31.8 g/dL (32.0-36.0); Mean Corpuscular Hemoglobin 28.1 pg (27.0-31.0); Mean Corpuscular Volume 88.2 fL (78.0-98.0); Mean Platelet Volume 10.9 fL (7.4-10.4); Platelet Count 273 10x3/uL (130-400); RBC Distribution Width 15.1 % (11.5-14.5); Red Blood Cell (RBC) Count 3.99 mill/uL (4.20-5.40)
[2024-05-13] MEDS ORDERED: Famotidine 20 MG TAB PO SCH (09:00)
[2024-05-13] MEDS: Famotidine 20 MG TAB PO SCH (09:09)
[2024-05-13] MEDS: Memantine 10 MG TAB PO SCH (09:09)
[2024-05-13] MEDS: Sertraline 100 MG TAB PO SCH (09:09)
[2024-05-13] MEDS: Hydrochlorothiazide 25 MG TAB PO SCH (09:09)
[2024-05-13] MEDS: Rosuvastatin 20 MG TAB PO SCH (09:09)
[2024-05-13] MEDS: Dexamethasone 4 MG TAB PO SCH (09:10)
[2024-05-13] MEDS: Amlodipine 10 MG TAB PO SCH (09:10)
[2024-05-13] MEDS: Sodium Chloride 0.9% 1,000 ML IV SCH (09:14)
[2024-05-13] MEDS ORDERED: Electrolyte Replacement Protocol 1 EACH FS SCH (10:45)
[2024-05-13] MEDS: Potassium Chloride 20 MEQ TAB PO SCH (12:50)
[2024-05-13] MEDS: Magnesium 2 GM/50 ML(in water) 2 GM in Premix 1 BAG IVPB SCH (12:53)
[2024-05-14 05:05] LABS: #Basophils Less than 0.03 10x3/uL (0.0-0.2); #Eosinphils Less than 0.03 10x3/uL (0.0-0.7); %Basophils 0.1 % (0.0-1.0); %Lymphocytes 4.6 % (21.0-51.0); %Monocytes 4.2 % (0.0-10.0); %Neutrophils 90.2 % (42.0-75.0); Hematocrit 36.9 % (36.0-47.0); Hemoglobin 11.7 g/dL (12.0-16.0); Mean Corpuscular HGB CONC 31.7 g/dL (32.0-36.0); Mean Corpuscular Hemoglobin 27.7 pg (27.0-31.0); Mean Corpuscular Volume 87.2 fL (78.0-98.0); Mean Platelet Volume 11.5 fL (7.4-10.4); Platelet Count 227 10x3/uL (130-400); RBC Distribution Width 15.3 % (11.5-14.5); Red Blood Cell (RBC) Count 4.23 mill/uL (4.20-5.40)
[2024-05-14 05:21] LABS: ALT (SGPT) 19 U/L (8-55); AST (SGOT) 42 U/L (5-34); Albumin 2.3 g/dL (3.4-4.8); Alkaline Phosphatase 128 U/L (40-110); Anion Gap 14 mmol/L (10-20); BUN (Urea Nitrogen) 22 mg/dL (9.8-20.1); Bilirubin, Total 0.3 mg/dL (0.2-1.2); Calc. Creatinine Clearance 77 mL/min (70-130); Calcium 10.6 mg/dL (7.8-10.44); Carbon Dioxide 19 mmol/L (23-31); Chloride 109 mmol/L (98-107); Estimated GFR 92; Globulin 4.1 g/dL (2.4-3.5); Glucose 113 mg/dL (83-110); Potassium 4.1 mmol/L (3.5-5.1); Protein, Total 6.4 g/dL (5.8-8.1); Sodium 138 mmol/L (136-145)
[2024-05-14] MEDS: Losartan 25 MG TAB PO SCH (09:59)
[2024-05-15 10:32] LABS: #Basophils Less than 0.03 10x3/uL (0.0-0.2); #Eosinphils Less than 0.03 10x3/uL (0.0-0.7); %Basophils 0.1 % (0.0-1.0); %Lymphocytes 4.7 % (21.0-51.0); %Monocytes 7.3 % (0.0-10.0); %Neutrophils 86.7 % (42.0-75.0); Hematocrit 39.6 % (36.0-47.0); Hemoglobin 12.6 g/dL (12.0-16.0); Mean Corpuscular HGB CONC 31.8 g/dL (32.0-36.0); Mean Corpuscular Hemoglobin 27.9 pg (27.0-31.0); Mean Corpuscular Volume 87.8 fL (78.0-98.0); Mean Platelet Volume 10.9 fL (7.4-10.4); Platelet Count 287 10x3/uL (130-400); RBC Distribution Width 15.3 % (11.5-14.5); Red Blood Cell (RBC) Count 4.51 mill/uL (4.20-5.40)
[2024-05-15 10:47] LABS: ALT (SGPT) 28 U/L (8-55); AST (SGOT) 43 U/L (5-34); Albumin 2.4 g/dL (3.4-4.8); Alkaline Phosphatase 141 U/L (40-110); Anion Gap 15 mmol/L (10-20); BUN (Urea Nitrogen) 26 mg/dL (9.8-20.1); Bilirubin, Total 0.3 mg/dL (0.2-1.2); Calc. Creatinine Clearance 77 mL/min (70-130); Calcium 10.7 mg/dL (7.8-10.44); Carbon Dioxide 19 mmol/L (23-31); Chloride 105 mmol/L (98-107); Estimated GFR 92; Globulin 4.2 g/dL (2.4-3.5); Glucose 145 mg/dL (83-110); Potassium 4.3 mmol/L (3.5-5.1); Protein, Total 6.6 g/dL (5.8-8.1); Sodium 135 mmol/L (136-145)
[2024-05-16 04:53] LABS: #Basophils 0.04 10x3/uL (0.0-0.2); #Eosinphils Less than 0.03 10x3/uL (0.0-0.7); %Basophils 0.2 % (0.0-1.0); %Lymphocytes 5.6 % (21.0-51.0); %Monocytes 4.5 % (0.0-10.0); %Neutrophils 87.9 % (42.0-75.0); Hemoglobin 12.5 g/dL (12.0-16.0); Mean Corpuscular HGB CONC 32.9 g/dL (32.0-36.0); Mean Corpuscular Hemoglobin 27.5 pg (27.0-31.0); Mean Corpuscular Volume 83.7 fL (78.0-98.0); Platelet Count 272 10x3/uL (130-400); RBC Distribution Width 15.4 % (11.5-14.5); Red Blood Cell (RBC) Count 4.54 mill/uL (4.20-5.40)
[2024-05-16 05:43] LABS: ALT (SGPT) 21 U/L (8-55); AST (SGOT) 38 U/L (5-34); Albumin 2.4 g/dL (3.4-4.8); Alkaline Phosphatase 139 U/L (40-110); Anion Gap 13 mmol/L (10-20); BUN (Urea Nitrogen) 31 mg/dL (9.8-20.1); Bilirubin, Total 0.4 mg/dL (0.2-1.2); Calc. Creatinine Clearance 75 mL/min (70-130); Calcium 10.8 mg/dL (7.8-10.44); Carbon Dioxide 20 mmol/L (23-31); Chloride 105 mmol/L (98-107); Estimated GFR 91; Globulin 3.9 g/dL (2.4-3.5); Glucose 97 mg/dL (83-110); Potassium 3.9 mmol/L (3.5-5.1); Protein, Total 6.3 g/dL (5.8-8.1); Sodium 134 mmol/L (136-145)
[2024-05-17] MEDS: Ondansetron PF 4 MG/2 ML Vial IVP PRN (08:58)
[2024-05-17] MEDS: Ondansetron ODT 4 MG TAB PO PRN (08:59)
[2024-05-17 17:35] VITALS: BMI 23.1
[2024-05-18 06:31] VITALS: BMI 24.8
[2024-05-18] MEDS ORDERED: Electrolyte Replacement Protocol FS PRN (09:30)
[2024-05-18 11:47] VITALS: TEMP 97.5
[2024-05-18 16:07] VITALS: BP 134/84
== END 2024-05-18 17:52 | DRG 180 ==
LOC: ERS 16:22 → 2NO 22:05 → OBSVTOIN 05-15 17:15 → MSONC 05-17 21:41
PROVIDERS: ADMIT Student in an Organized Health Care Education/Training Program; ATTEND Internal Medicine
DX: C34.90 Malignant neoplasm of unspecified part of unspecified bronchus or lung (principal); E43 Unspecified severe protein-calorie malnutrition; C79.70 Secondary malignant neoplasm of unspecified adrenal gland; C79.31 Secondary malignant neoplasm of brain; C78.7 Secondary malignant neoplasm of liver and intrahepatic bile duct; E86.0 Dehydration; E87.6 Hypokalemia; D72.829 Elevated white blood cell count, unspecified; Z79.899 Other long term (current) drug therapy; I10 Essential (primary) hypertension; Z98.51 Tubal ligation status; Z98.890 Other specified postprocedural states; Z51.5 Encounter for palliative care; Z91.041 Radiographic dye allergy status; F32.A Depression, unspecified; Z87.891 Personal history of nicotine dependence
CPT/HCPCS: 36415; 36416; 71045; 71275; 80048; 80053; 81001; 83605; 83690; 83735; 83880; 84484; 85025; 93005; 96374; 96375; J1200; J1642; J2405; J2930; J3475; J3480; J7050; J8540; Q0162; Q9967; S0028